=== PATIENT | female | born 1950 | race Caucasian/White ===

== ENCOUNTER 2024-07-14 17:12 | Inpatient (IN) | payer MEDICARE, BC ==
[~2024-07-14] VITALS: Ht 170.2 cm; Wt 58.1 kg
[2024-07-14] MEDS ORDERED: CITA10SO3 PO (18:07)
[2024-07-14] MEDS ORDERED: LEVO25TA9 PO (18:07)
[2024-07-14 22:50] VITALS: BP 136/57; TEMP 98; O2SAT 96
[2024-07-14] MEDS ORDERED: ZOLPIDEM 5 MG TABLET PO PRN (23:45)
[2024-07-14] MEDS ORDERED: MAGNESIUM HYDROXIDE 30 ML LIQUID UDC PO PRN (23:45)
[2024-07-14] MEDS: BLOOD SUGAR DIAGNOSTIC 1 EACH STRIP VI ONE (23:45)
[2024-07-14] MEDS ORDERED: ACETAMINOPHEN 325 MG TABLET PO PRN (23:45)
[2024-07-14] MEDS ORDERED: LORAZEPAM 1 MG TABLET PO PRN (23:45)
[2024-07-14] MEDS ORDERED: MAG HYDROX/AL HYDROX/SIMETH 30 ML LIQUID UDC PO PRN (23:45)
[2024-07-15] MEDS ORDERED: LEVOTHYROXINE SODIUM 25 MCG TABLET PO SCH ×2 (07:00→09:00)
[2024-07-15 08:41] VITALS: BP 103/56; TEMP 98; O2SAT 98
[2024-07-15] MEDS: VENLAFAXINE XR 37.5 MG CAP.SR.24H PO SCH (09:15)
[2024-07-15] MEDS: LEVOTHYROXINE SODIUM 150 MCG TABLET PO SCH (11:00)
[2024-07-15 16:37] VITALS: BP 110/59; TEMP 98; O2SAT 96
[2024-07-15 20:06] VITALS: BP 110/60; TEMP 98.1; O2SAT 96
[2024-07-15] MEDS: MIRTAZAPINE 15 MG TABLET PO SCH (20:45)
[2024-07-16 08:40] VITALS: BP 116/61; TEMP 98; O2SAT 99
[2024-07-16 15:43] VITALS: BP 102/56; TEMP 98; O2SAT 96
[2024-07-16] MEDS: LORAZEPAM 1 MG TABLET PO PRN (19:57)
[2024-07-16 20:00] VITALS: BP 104/50; TEMP 97.4; O2SAT 98
[2024-07-17] MEDS: ZOLPIDEM 5 MG TABLET PO PRN (01:02)
[2024-07-17 07:50] VITALS: BP 104/47; TEMP 98; O2SAT 98
[2024-07-17 15:09] VITALS: BP 109/52; TEMP 97.8; O2SAT 98
[2024-07-17 19:59] VITALS: BP 102/64; TEMP 97.9; O2SAT 96
[2024-07-17] MEDS: LAMOTRIGINE 25 MG TABLET PO SCH (21:01)
[2024-07-18 08:00] VITALS: BP 92/65; TEMP 98.4; O2SAT 96
[2024-07-18 14:20] LABS: THYROID STIMULATING HORMONE 0.066 mIU/mL (0.358-3.740)
[2024-07-18 20:12] VITALS: BP 106/60; TEMP 98.1; O2SAT 96
[2024-07-18] MEDS: LAMOTRIGINE 25 MG TABLET PO SCH (20:47)
[2024-07-19 08:07] VITALS: BP 103/67; TEMP 98; O2SAT 98
[2024-07-19 15:23] VITALS: BP 101/57; TEMP 98; O2SAT 98
[2024-07-19 20:15] VITALS: BP 124/59; TEMP 98.1; O2SAT 96
[2024-07-19] MEDS: ATORVASTATIN 20 MG TABLET PO SCH (20:34)
[2024-07-20 08:32] VITALS: BP 111/65; TEMP 98; O2SAT 96
[2024-07-20] MEDS: FENOFIBRATE NANOCRYSTALLIZED 48 MG TABLET PO SCH (08:33)
[2024-07-20 09:36] LABS: BASOPHILS # (AUTO) 0.1 K/UL (0.0-0.2); BASOPHILS % (AUTO) 1.1 % (0.0-2.0); EOSINOPHILS # (AUTO) 0.3 K/uL (0.0-0.7); EOSINOPHILS % (AUTO) 4.6 % (0.0-7.0); HEMOGLOBIN 14.2 g/dL (10.9-14.3); LYMPHOCYTES # (AUTO) 2.2 K/uL (0.8-4.8); LYMPHOCYTES % (AUTO) 33.8 % (20.5-51.5); MEAN CORPUSCULAR HEMOGLOBIN 31.9 uug (24.7-32.8); MEAN CORPUSCULAR HGB CONC 34 g/dL (32.3-35.6); MEAN CORPUSCULAR VOLUME 94.5 fL (75.5-95.3); MONOCYTES # (AUTO) 0.7 K/uL (0.1-1.30); MONOCYTES % (AUTO) 10.4 % (0.0-11.0); NEUTROPHILS # (AUTO) 3.3 K/uL (1.8-8.9); NEUTROPHILS % (AUTO) 50.1 % (38.5-71.5); PLATELET COUNT (AUTO) 210 K/uL (179-408); RED BLOOD CELL COUNT(AUTO) 4.45 MIL/uL (3.63-4.92); RED CELL DISTRIBUTION WIDTH 13.4 % (12.3-17.7); WHITE BLOOD COUNT (AUTO) 6.5 K/uL (3.8-11.8)
[2024-07-20 09:47] LABS: DIFFERENTIAL COMMENT 1
[2024-07-20 09:49] LABS: CALCIUM 9.2 mg/dL (8.5-10.1); CARBON DIOXIDE 25 mmol/L (21-32); CHLORIDE 104 mmol/L (98-107); GLUCOSE 128 mg/dL (74-106); PHOSPHOROUS 3.9 mg/dL (2.5-4.9); POTASSIUM 3.7 mmol/L (3.5-5.1); SODIUM SERUM 140 mmol/L (136-145); UREA NITROGEN, BLOOD 11 mg/dL (7-18)
[2024-07-20 10:25] LABS: THYROID STIMULATING HORMONE 0.048 mIU/mL (0.358-3.740)
[2024-07-20 15:23] VITALS: BP 112/53; TEMP 98; O2SAT 98
[2024-07-20 20:00] VITALS: BP 108/50; TEMP 96.6; O2SAT 97
[2024-07-21] MEDS ORDERED: LEVOTHYROXINE SODIUM 100 MCG TABLET PO SCH (07:00)
[2024-07-21] MEDS ORDERED: LEVOTHYROXINE SODIUM 150 MCG TABLET PO SCH (07:00)
[2024-07-21 08:06] VITALS: BP 120/46; TEMP 98; O2SAT 98
[2024-07-21] MEDS: LEVOTHYROXINE SODIUM 100 MCG TABLET PO SCH (08:36)
[2024-07-21 15:42] VITALS: BP 107/56; TEMP 98; O2SAT 99
[2024-07-21] MEDS: ENSURE ENLIVE (VAN) 240 ML LIQUID PO SCH (17:32)
[2024-07-21 20:00] VITALS: BP 94/59; TEMP 96.8; O2SAT 96
[2024-07-22 08:02] VITALS: BP 108/65; TEMP 98; O2SAT 96
== END 2024-07-22 11:15 | disposition home or self-care (01) | DRG 885 ==
LOC: ER 17:12 → GPS 23:26
PROVIDERS: ADMIT Psychiatry & Neurology Psychiatry; ATTEND Nurse Practitioner Acute Care
DX: F31.5 Bipolar disorder, current episode depressed, severe, with psychotic features (principal); R45.851 Suicidal ideations; G23.8 Other specified degenerative diseases of basal ganglia; F03.94 Unspecified dementia, unspecified severity, with anxiety; E03.9 Hypothyroidism, unspecified; Z79.890 Hormone replacement therapy; E78.1 Pure hyperglyceridemia
CPT/HCPCS: 36415; 83735; 83921; 84100; 84443; 85025